=== PATIENT | male | born 1960 | race Caucasian/White ===

== ENCOUNTER 2017-07-25 20:17 | Inpatient (IN) | payer SELFPAY ==
[2017-07-25] MEDS ORDERED: ALBUTEROL SULFATE 2.5 MG/3 ML NEBU. (20:29)
[2017-07-25] MEDS ORDERED: IPRATRPIUM/ALBUTEROL 0.5/2.5MG 3 ML NEBU. (20:29)
[2017-07-25] MEDS: 0.9 % SODIUM CHLORIDE 10 ML DISP.SYRIN. IV (20:45)
[2017-07-25] MEDS: methylPREDNISolone SOD SUCC PF 125 MG/2 ML VIAL. IV (20:48)
[2017-07-25 20:50] LABS: ADD MAN DIFF? NO
[2017-07-25 20:52] LABS: BASO # 0.1 x10^3/uL (0.0-0.2); BASO % 1 % (0-3); EOS # 0.7 x10^3/uL (0.0-0.7); EOS % 7 % (0-3); HEMATOCRIT 44.5 % (39.0-53.0); HEMOGLOBIN 15.1 g/dL (13.0-17.5); LYMPH # 1.3 x10^3/uL (1.0-4.8); LYMPH % 13 % (24-48); MEAN CORPUSCULAR HEMOGLOBIN 30 pg (25-35); MEAN CORPUSCULAR HGB CONC 34 g/dL (31-37); MEAN CORPUSCULAR VOLUME 88 fL (79-100); MONO # 0.6 x10^3/uL (0.0-1.1); MONO % 6 % (0-9); NEUT # 7.6 x10^3uL (1.8-7.7); NEUT % 73 % (31-73); PLATELET COUNT 295 x10^3/uL (140-400); RED BLOOD COUNT 5.03 x10^6/uL (4.30-5.70); RED CELL DISTRIBUTION WIDTH 15.5 % (11.5-14.5); WHITE BLOOD COUNT 10.4 x10^3/uL (4.0-11.0)
[2017-07-25 21:02] LABS: ANION GAP 5 (6-14); BLOOD UREA NITROGEN 11 mg/dL (8-26); BUN/CREATININE RATIO 12 (6-20); CALCIUM 8.7 mg/dL (8.5-10.1); CARBON DIOXIDE 31 mmol/L (21-32); CHLORIDE 103 mmol/L (98-107); CREATININE 0.9 mg/dL (0.7-1.3); GFR 87.3; GLUCOSE 147 mg/dL (70-99); POTASSIUM 4.4 mmol/L (3.5-5.1); SODIUM 139 mmol/L (136-145)
[2017-07-25 21:10] LABS: ALBUMIN 3.6 g/dL (3.4-5.0); ALBUMIN/GLOBULIN RATIO 0.8 (1.0-1.7); ALK PHOS 95 U/L (46-116); ALT (SGPT) 33 U/L (16-63); AST (SGOT) 24 U/L (15-37); TOTAL BILIRUBIN 0.4 mg/dL (0.2-1.0); TOTAL PROTEIN 7.9 g/dL (6.4-8.2)
[2017-07-25 21:12] LABS: TROPONINI 0.059 ng/mL (0.000-0.055)
[2017-07-25 21:15] LABS: NT-PRO BNP 160 pg/mL (0-124)
[2017-07-25 21:15] LABS: CKMB INDEX 1.1 % (0-4); CKMB MASS 2.9 ng/mL (0.0-3.6); CREATINE KINASE 273 U/L (39-308)
[2017-07-25] MEDS: IPRATRPIUM/ALBUTEROL 0.5/2.5MG 3 ML NEBU. NEB (22:00)
[2017-07-25] MEDS: ALBUTEROL SULFATE 2.5 MG/3 ML NEBU. CONT NEB (22:00)
[2017-07-25] MEDS: IV NORMAL SALINE 1000ML BAG 1,000 ML IV (22:12)
[2017-07-25] MEDS ORDERED: ONDANSETRON PF 4 MG/2 ML VIAL. IV (22:15)
[2017-07-26] MEDS: ACETAMINOPHEN 325 MG TABLET. PO ×2 (00:03→06:19)
[2017-07-26] MEDS: methylPREDNISolone SOD SUCC PF 40 MG/ML VIAL. IV ×5 (00:03→23:04)
[2017-07-26 01:51] LABS: BASO % 0 % (0-3); EOS % 0 % (0-3); HEMATOCRIT 45.6 % (39.0-53.0); HEMOGLOBIN 15.4 g/dL (13.0-17.5); LYMPH # 0.3 x10^3/uL (1.0-4.8); LYMPH % 3 % (24-48); MEAN CORPUSCULAR HEMOGLOBIN 30 pg (25-35); MEAN CORPUSCULAR HGB CONC 34 g/dL (31-37); MEAN CORPUSCULAR VOLUME 89 fL (79-100); MONO # 0.1 x10^3/uL (0.0-1.1); MONO % 1 % (0-9); NEUT # 9.9 x10^3uL (1.8-7.7); NEUT % 96 % (31-73); PLATELET COUNT 274 x10^3/uL (140-400); RED BLOOD COUNT 5.09 x10^6/uL (4.30-5.70); RED CELL DISTRIBUTION WIDTH 15.5 % (11.5-14.5); WHITE BLOOD COUNT 10.3 x10^3/uL (4.0-11.0)
[2017-07-26 01:57] LABS: ADD MAN DIFF? YES
[2017-07-26 02:03] LABS: ANION GAP 8 (6-14); BLOOD UREA NITROGEN 13 mg/dL (8-26); CALCIUM 9.4 mg/dL (8.5-10.1); CARBON DIOXIDE 32 mmol/L (21-32); CHLORIDE 102 mmol/L (98-107); CREATININE 1.1 mg/dL (0.7-1.3); GFR 69.2; GLUCOSE 215 mg/dL (70-99); POTASSIUM 4.4 mmol/L (3.5-5.1); SODIUM 142 mmol/L (136-145)
[2017-07-26 02:12] LABS: TROPONINI 0.042 ng/mL (0.000-0.055)
[2017-07-26 02:45] LABS: % BANDS 1 % (0-9); % LYMPHS 3 % (24-48); % SEGS 96 % (35-66); PLT ESTIMATE ADEQUATE (ADEQUATE)
[2017-07-26 05:24] LABS: TROPONINI 0.032 ng/mL (0.000-0.055)
[2017-07-26] MEDS: IPRATRPIUM/ALBUTEROL 0.5/2.5MG 3 ML NEBU. NEB ×6 (08:00→20:39)
[2017-07-26] MEDS ORDERED: DOCUSATE SODIUM 100 MG CAPSULE. PO (10:45)
[2017-07-26] MEDS ORDERED: ALBUTEROL SULFATE 2.5 MG/3 ML NEBU. NEB (10:45)
[2017-07-26] MEDS ORDERED: hydrALAZINE 20 MG/ML VIAL. IVP (10:45)
[2017-07-26] MEDS ORDERED: MORPHINE SULFATE 4 MG/ML DISP.SYRIN. IV (10:45)
[2017-07-26] MEDS ORDERED: ACETAMINOPHEN 325 MG TABLET. PO (10:45)
[2017-07-26] MEDS ORDERED: ONDANSETRON PF 4 MG/2 ML VIAL. IV (10:45)
[2017-07-26] MEDS: FUROSEMIDE 40 MG/4 ML VIAL. IVP (11:51)
[2017-07-26 12:38] LABS: POC GLUCOSE 222 mg/dL (70-99)
[2017-07-26] MEDS ORDERED: DEXTROSE 50% 25 GM / 50ML DISP.SYRIN. IV (14:45)
[2017-07-26] MEDS: ENOXAPARIN 40 MG/0.4 ML SYRINGE. SQ (15:54)
[2017-07-26] MEDS ORDERED: IOHEXOL 300 MG/ML 100ML VIAL. (16:56)
[2017-07-26] MEDS ORDERED: CONTRAST GIVEN MC (17:00)
[2017-07-26] MEDS: IOHEXOL 300 MG/ML 100ML VIAL. IV (17:09)
[2017-07-26] MEDS: traMADol 50 MG TABLET PO (17:23)
[2017-07-26] MEDS: INSULIN LISPRO 300 UNITS/3 ML INSULN.PEN. SQ ×2 (17:26→23:15)
[2017-07-26 17:27] LABS: POC GLUCOSE 222 mg/dL (70-99)
[2017-07-26 20:45] LABS: POC GLUCOSE 254 mg/dL (70-99)
[2017-07-26] MEDS: FAMOTIDINE 20 MG TABLET. PO (21:48)
[2017-07-27 03:40] LABS: POC GLUCOSE 193 mg/dL (70-99)
[2017-07-27] MEDS: methylPREDNISolone SOD SUCC PF 40 MG/ML VIAL. IV ×2 (06:16→21:23)
[2017-07-27] MEDS: IPRATRPIUM/ALBUTEROL 0.5/2.5MG 3 ML NEBU. NEB ×4 (07:33→19:27)
[2017-07-27 07:54] LABS: POC GLUCOSE 208 mg/dL (70-99)
[2017-07-27] MEDS: FUROSEMIDE 40 MG/4 ML VIAL. IVP (07:54)
[2017-07-27] MEDS: INSULIN LISPRO 300 UNITS/3 ML INSULN.PEN. SQ ×3 (07:59→17:18)
[2017-07-27 09:28] LABS: BASO % 0 % (0-3); EOS % 0 % (0-3); HEMATOCRIT 45.1 % (39.0-53.0); HEMOGLOBIN 14.8 g/dL (13.0-17.5); LYMPH # 0.4 x10^3/uL (1.0-4.8); LYMPH % 2 % (24-48); MEAN CORPUSCULAR HEMOGLOBIN 30 pg (25-35); MEAN CORPUSCULAR HGB CONC 33 g/dL (31-37); MEAN CORPUSCULAR VOLUME 90 fL (79-100); MONO # 0.4 x10^3/uL (0.0-1.1); MONO % 2 % (0-9); NEUT # 21.5 x10^3uL (1.8-7.7); NEUT % 96 % (31-73); PLATELET COUNT 335 x10^3/uL (140-400); RED BLOOD COUNT 5.03 x10^6/uL (4.30-5.70); RED CELL DISTRIBUTION WIDTH 15.6 % (11.5-14.5); WHITE BLOOD COUNT 22.3 x10^3/uL (4.0-11.0)
[2017-07-27 09:33] LABS: ADD MAN DIFF? YES
[2017-07-27 09:45] LABS: ANION GAP 10 (6-14); BLOOD UREA NITROGEN 20 mg/dL (8-26); CALCIUM 8.6 mg/dL (8.5-10.1); CARBON DIOXIDE 30 mmol/L (21-32); CHLORIDE 98 mmol/L (98-107); CHOLESTEROL 211 mg/dL (0-200); CREATININE 1.3 mg/dL (0.7-1.3); GFR 57.1; GLUCOSE 237 mg/dL (70-99); HDLC 42 mg/dL (40-60); LDLC 154 mg/dL (0-100); NON-HDL CHOLESTEROL 169 mg/dL (0-129); POTASSIUM 4.1 mmol/L (3.5-5.1); SODIUM 138 mmol/L (136-145); TRIGLYCERIDES 75 mg/dL (0-150); VLDLC 15 mg/dL (0-40)
[2017-07-27 09:57] LABS: THYROID STIM HORMONE (TSH) 0.633 uIU/mL (0.358-3.74)
[2017-07-27 11:24] LABS: POC GLUCOSE 248 mg/dL (70-99)
[2017-07-27 12:32] LABS: % BANDS 14 % (0-9); % MONOS 2 % (0-10); % SEGS 84 % (35-66); PLT ESTIMATE ADEQUATE (ADEQUATE)
[2017-07-27] MEDS: ASPIRIN ENTERIC COATED 81 MG TABLET.DR. PO (13:16)
[2017-07-27] MEDS: ENOXAPARIN 40 MG/0.4 ML SYRINGE. SQ (13:18)
[2017-07-27 15:32] LABS: HEMOGLOBIN A1C 6.6 % (4.8-5.6)
[2017-07-27 17:09] LABS: POC GLUCOSE 247 mg/dL (70-99)
[2017-07-27 20:47] LABS: POC GLUCOSE 194 mg/dL (70-99)
[2017-07-27] MEDS ORDERED: ATORVASTATIN CALCIUM 20 MG TABLET PO (21:00)
[2017-07-27] MEDS: LACTOBACILLUS RHAMNOSUS GG 1 CAPSULE. PO (21:22)
[2017-07-27] MEDS: FAMOTIDINE 20 MG TABLET. PO (21:22)
[2017-07-27] MEDS: ATORVASTATIN CALCIUM 40 MG TABLET. PO (21:22)
[2017-07-28 05:03] LABS: ADD MAN DIFF? NO
[2017-07-28 05:14] LABS: BASO % 0 % (0-3); EOS % 0 % (0-3); HEMATOCRIT 42.2 % (39.0-53.0); LYMPH # 0.4 x10^3/uL (1.0-4.8); LYMPH % 2 % (24-48); MEAN CORPUSCULAR HEMOGLOBIN 30 pg (25-35); MEAN CORPUSCULAR HGB CONC 33 g/dL (31-37); MEAN CORPUSCULAR VOLUME 89 fL (79-100); MONO # 0.3 x10^3/uL (0.0-1.1); MONO % 2 % (0-9); NEUT # 19.9 x10^3uL (1.8-7.7); NEUT % 97 % (31-73); PLATELET COUNT 291 x10^3/uL (140-400); RED BLOOD COUNT 4.74 x10^6/uL (4.30-5.70); RED CELL DISTRIBUTION WIDTH 15.5 % (11.5-14.5); WHITE BLOOD COUNT 20.7 x10^3/uL (4.0-11.0)
[2017-07-28 05:27] LABS: ANION GAP 7 (6-14); BLOOD UREA NITROGEN 24 mg/dL (8-26); CALCIUM 8.7 mg/dL (8.5-10.1); CARBON DIOXIDE 31 mmol/L (21-32); CHLORIDE 101 mmol/L (98-107); CREATININE 1.1 mg/dL (0.7-1.3); GFR 69.2; GLUCOSE 241 mg/dL (70-99); POTASSIUM 4.8 mmol/L (3.5-5.1); SODIUM 139 mmol/L (136-145)
[2017-07-28] MEDS: IPRATRPIUM/ALBUTEROL 0.5/2.5MG 3 ML NEBU. NEB ×4 (07:06→19:08)
[2017-07-28] MEDS ORDERED: FUROSEMIDE 20 MG TABLET PO (09:00)
[2017-07-28] MEDS: LACTOBACILLUS RHAMNOSUS GG 1 CAPSULE. PO ×2 (09:17→20:28)
[2017-07-28] MEDS: FUROSEMIDE 20 MG TABLET PO (09:18)
[2017-07-28] MEDS: ASPIRIN ENTERIC COATED 81 MG TABLET.DR. PO (09:18)
[2017-07-28] MEDS: INSULIN LISPRO 300 UNITS/3 ML INSULN.PEN. SQ ×3 (09:24→17:00)
[2017-07-28] MEDS: methylPREDNISolone SOD SUCC PF 40 MG/ML VIAL. IV ×2 (09:29→20:29)
[2017-07-28 10:12] LABS: POC GLUCOSE 249 mg/dL (70-99)
[2017-07-28 10:32] LABS: POC GLUCOSE 211 mg/dL (70-99)
[2017-07-28 11:21] LABS: POC GLUCOSE 228 mg/dL (70-99)
[2017-07-28] MEDS: ENOXAPARIN 40 MG/0.4 ML SYRINGE. SQ (15:23)
[2017-07-28 16:58] LABS: POC GLUCOSE 262 mg/dL (70-99)
[2017-07-28] MEDS: ATORVASTATIN CALCIUM 40 MG TABLET. PO (20:28)
[2017-07-28] MEDS: FAMOTIDINE 20 MG TABLET. PO (20:28)
[2017-07-28] MEDS: MONTELUKAST SODIUM 10 MG TABLET. PO (20:28)
[2017-07-28 20:57] LABS: POC GLUCOSE 176 mg/dL (70-99)
[2017-07-28] MEDS: INSULIN GLARGINE 300 UNITS/3 ML INSULN.PEN. SQ (21:56)
[2017-07-28] MEDS: traMADol 50 MG TABLET PO (23:57)
[2017-07-29] MEDS: IPRATRPIUM/ALBUTEROL 0.5/2.5MG 3 ML NEBU. NEB ×4 (06:14→19:22)
[2017-07-29 07:50] LABS: POC GLUCOSE 199 mg/dL (70-99)
[2017-07-29] MEDS: methylPREDNISolone SOD SUCC PF 40 MG/ML VIAL. IV (08:25)
[2017-07-29] MEDS: LACTOBACILLUS RHAMNOSUS GG 1 CAPSULE. PO ×2 (08:27→21:29)
[2017-07-29] MEDS: FUROSEMIDE 20 MG TABLET PO (08:27)
[2017-07-29] MEDS: ASPIRIN ENTERIC COATED 81 MG TABLET.DR. PO (08:27)
[2017-07-29] MEDS: INSULIN LISPRO 300 UNITS/3 ML INSULN.PEN. SQ ×3 (08:43→17:58)
[2017-07-29 11:49] LABS: POC GLUCOSE 196 mg/dL (70-99)
[2017-07-29] MEDS: ENOXAPARIN 40 MG/0.4 ML SYRINGE. SQ (12:43)
[2017-07-29 16:24] LABS: POC GLUCOSE 210 mg/dL (70-99)
[2017-07-29 20:17] LABS: POC GLUCOSE 256 mg/dL (70-99)
[2017-07-29] MEDS: ATORVASTATIN CALCIUM 40 MG TABLET. PO (21:29)
[2017-07-29] MEDS: FAMOTIDINE 20 MG TABLET. PO (21:29)
[2017-07-29] MEDS: MONTELUKAST SODIUM 10 MG TABLET. PO (21:29)
[2017-07-29] MEDS: INSULIN GLARGINE 300 UNITS/3 ML INSULN.PEN. SQ (21:32)
[2017-07-30 07:28] LABS: POC GLUCOSE 121 mg/dL (70-99)
[2017-07-30] MEDS: IPRATRPIUM/ALBUTEROL 0.5/2.5MG 3 ML NEBU. NEB ×4 (07:58→19:43)
[2017-07-30] MEDS: ASPIRIN ENTERIC COATED 81 MG TABLET.DR. PO (08:00)
[2017-07-30] MEDS: INSULIN LISPRO 300 UNITS/3 ML INSULN.PEN. SQ ×3 (08:00→17:28)
[2017-07-30] MEDS: FUROSEMIDE 20 MG TABLET PO (09:00)
[2017-07-30] MEDS: LACTOBACILLUS RHAMNOSUS GG 1 CAPSULE. PO ×2 (09:00→21:04)
[2017-07-30] MEDS: predniSONE 20 MG TABLET PO (09:00)
[2017-07-30] MEDS ORDERED: HYDROmorphone 2 MG/ML VIAL IV (11:00)
[2017-07-30] MEDS ORDERED: PROCHLORPERAZINE 10 MG/2 ML VIAL. IV (11:00)
[2017-07-30] MEDS ORDERED: ONDANSETRON PF 4 MG/2 ML VIAL. IV (11:00)
[2017-07-30] MEDS ORDERED: fentaNYL PF VIAL 100 MCG/2 ML VIAL IV ×2 (11:00)
[2017-07-30] MEDS ORDERED: LIDOCAINE 1% PF 2 ML VIAL. ID (11:00)
[2017-07-30] MEDS ORDERED: MORPHINE SULFATE 4 MG/ML DISP.SYRIN. IV (11:00)
[2017-07-30] MEDS ORDERED: LIDOCAINE 2% PF Vial for OR 5 ML VIAL. (11:10)
[2017-07-30] MEDS ORDERED: PROPOFOL 20 ML IV (11:10)
[2017-07-30] MEDS: LIDOCAINE 2% VISCOUS 15 ML SOLUTION. SWSW (11:30)
[2017-07-30] MEDS: BENZOCAINE ONE 20% MUCOSAL SPRAY. MM (11:55)
[2017-07-30] MEDS: LIDOCAINE 2% TOPICAL JELLY 5GM TUBE. TP (11:55)
[2017-07-30] MEDS: IV RINGERS,LACTATED 1000ML 1,000 ML IV (11:59)
[2017-07-30 12:08] LABS: POC GLUCOSE 114 mg/dL (70-99)
[2017-07-30] MEDS: ENOXAPARIN 40 MG/0.4 ML SYRINGE. SQ (14:16)
[2017-07-30] MEDS: ATORVASTATIN CALCIUM 40 MG TABLET. PO (21:04)
[2017-07-30] MEDS: FAMOTIDINE 20 MG TABLET. PO (21:04)
[2017-07-30 21:05] LABS: POC GLUCOSE 167 mg/dL (70-99)
[2017-07-30] MEDS: INSULIN GLARGINE 300 UNITS/3 ML INSULN.PEN. SQ (21:11)
[2017-07-30] MEDS: MONTELUKAST SODIUM 10 MG TABLET. PO (21:12)
[2017-07-31 07:05] LABS: ADD MAN DIFF? NO
[2017-07-31 07:12] LABS: BASO % 0 % (0-3); EOS # 0.6 x10^3/uL (0.0-0.7); EOS % 6 % (0-3); HEMATOCRIT 44.7 % (39.0-53.0); LYMPH # 1.1 x10^3/uL (1.0-4.8); LYMPH % 12 % (24-48); MEAN CORPUSCULAR HEMOGLOBIN 29 pg (25-35); MEAN CORPUSCULAR HGB CONC 34 g/dL (31-37); MEAN CORPUSCULAR VOLUME 88 fL (79-100); MONO # 0.7 x10^3/uL (0.0-1.1); MONO % 8 % (0-9); NEUT # 7.2 x10^3uL (1.8-7.7); NEUT % 75 % (31-73); PLATELET COUNT 263 x10^3/uL (140-400); RED BLOOD COUNT 5.09 x10^6/uL (4.30-5.70); RED CELL DISTRIBUTION WIDTH 15.5 % (11.5-14.5); WHITE BLOOD COUNT 9.7 x10^3/uL (4.0-11.0)
[2017-07-31 07:28] LABS: POC GLUCOSE 167 mg/dL (70-99)
[2017-07-31 07:31] LABS: ANION GAP 6 (6-14); BLOOD UREA NITROGEN 19 mg/dL (8-26); CALCIUM 7.6 mg/dL (8.5-10.1); CARBON DIOXIDE 32 mmol/L (21-32); CHLORIDE 102 mmol/L (98-107); GFR 77.3; GLUCOSE 117 mg/dL (70-99); POTASSIUM 3.5 mmol/L (3.5-5.1); SODIUM 140 mmol/L (136-145)
[2017-07-31] MEDS: IPRATRPIUM/ALBUTEROL 0.5/2.5MG 3 ML NEBU. NEB ×2 (07:39→11:27)
[2017-07-31 07:48] LABS: POC GLUCOSE 120 mg/dL (70-99)
[2017-07-31] MEDS: INSULIN LISPRO 300 UNITS/3 ML INSULN.PEN. SQ ×2 (08:18→13:21)
[2017-07-31] MEDS: FUROSEMIDE 20 MG TABLET PO (08:20)
[2017-07-31] MEDS: LACTOBACILLUS RHAMNOSUS GG 1 CAPSULE. PO (08:20)
[2017-07-31] MEDS: predniSONE 20 MG TABLET PO (08:20)
[2017-07-31] MEDS: ASPIRIN ENTERIC COATED 81 MG TABLET.DR. PO (08:20)
[2017-07-31 12:13] LABS: POC GLUCOSE 166 mg/dL (70-99)
== END 2017-07-31 18:50 | disposition home or self-care (01) | DRG 291 ==
LOC: ER 20:17 → 6 SOUTH 21:51
DX: I50.33 Acute on chronic diastolic (congestive) heart failure (principal); J96.01 Acute respiratory failure with hypoxia; I27.20 Pulmonary hypertension, unspecified; E87.0 Hyperosmolality and hypernatremia; E11.65 Type 2 diabetes mellitus with hyperglycemia; E66.01 Morbid (severe) obesity due to excess calories; J44.1 Chronic obstructive pulmonary disease with (acute) exacerbation; I05.0 Rheumatic mitral stenosis; E87.6 Hypokalemia; M19.90 Unspecified osteoarthritis, unspecified site; E78.5 Hyperlipidemia, unspecified; F17.201 Nicotine dependence, unspecified, in remission; J30.9 Allergic rhinitis, unspecified; Z79.899 Other long term (current) drug therapy; Z82.49 Family history of ischemic heart disease and other diseases of the circulatory system; Z90.49 Acquired absence of other specified parts of digestive tract; Z87.442 Personal history of urinary calculi; Z88.0 Allergy status to penicillin; Z88.8 Allergy status to other drugs, medicaments and biological substances; Z91.018 Allergy to other foods; Z68.37 Body mass index [BMI] 37.0-37.9, adult; Z91.19 Patient's noncompliance with other medical treatment and regimen
CPT/HCPCS: 36415; 71045; 71250; 71260; 80048; 80053; 80061; 82553; 82962; 83036; 83880; 84443; 84484; 85007; 85025; 93005; 93306; 93312; 93320; 93325; 94618; 94640; 94644; 94760; J1650; J1815; J1940; J1956; J2704; J2920; J2930; J7120; J7512; J7613; J7620; Q9967